=== PATIENT | female | born 1950 | race Caucasian/White ===

== ENCOUNTER → 2017-11-15 | Outpatient (CLI) | payer OTHER | LOC: M.RAD 10:46 | DX: Z12.31 Encounter for screening mammogram for malignant neoplasm of breast (principal) ==

== ENCOUNTER → 2020-05-18 | Outpatient (CLI) | payer MEDICARE | LOC: M.RAD 05-13 12:52 | PROVIDERS: ATTEND Student in an Organized Health Care Education/Training Program | DX: N60.01 Solitary cyst of right breast (principal); N95.9 Unspecified menopausal and perimenopausal disorder; M85.88 Other specified disorders of bone density and structure, other site ==